=== PATIENT | male | born 1960 | race African-American/Black ===

== ENCOUNTER 2017-12-18 08:39 | Emergency (ER) | payer MEDICAID, OTHER ==
[~2017-12-18] VITALS: Ht 175.3 cm; Wt 88.6 kg
[~2017-12-18 08:39] MED LIST: AMLO-511 PO; HYDR25TA PO; METO50 PO
[2017-12-18 08:45] VITALS: BP 156/108
[2017-12-18] MEDS ORDERED: ACETAMINOPHEN 500 MG TABLET PO ONE (09:00)
== END 2017-12-18 09:53 | disposition home or self-care (01) ==
LOC: EMS 08:40
DX: S92.352A Displaced fracture of fifth metatarsal bone, left foot, initial encounter for closed fracture (principal); I10 Essential (primary) hypertension; E78.00 Pure hypercholesterolemia, unspecified; X50.1XXA Overexertion from prolonged static or awkward postures, initial encounter; Y93.89 Activity, other specified; Y92.89 Other specified places as the place of occurrence of the external cause; Y99.8 Other external cause status
CPT/HCPCS: 29515; 99284

== ENCOUNTER 2018-02-07 20:23 | Emergency (ER) | payer OTHER ==
[~2018-02-07] VITALS: Ht 175.3 cm; Wt 87.3 kg
[2018-02-07] MEDS ORDERED: OMEP20 PO (20:32)
[2018-02-07] MEDS ORDERED: TAMS0.4C32 PO (20:32)
[2018-02-07] MEDS ORDERED: ASPI-556 PO (20:32)
[2018-02-07 21:10] VITALS: BP 124/76
[2018-02-07] MEDS ORDERED: IBUPROFEN 800 MG TABLET PO ONE (21:30)
== END 2018-02-07 22:06 | disposition home or self-care (01) ==
LOC: EMS 20:24
DX: S90.121A Contusion of right lesser toe(s) without damage to nail, initial encounter (principal); I25.10 Atherosclerotic heart disease of native coronary artery without angina pectoris; K21.9 Gastro-esophageal reflux disease without esophagitis; E78.00 Pure hypercholesterolemia, unspecified; I10 Essential (primary) hypertension; W22.8XXA Striking against or struck by other objects, initial encounter; Y93.89 Activity, other specified; Y92.89 Other specified places as the place of occurrence of the external cause; Y99.8 Other external cause status
CPT/HCPCS: 29550; 99284

== ENCOUNTER 2020-02-10 22:17 | Emergency (ER) | payer OTHER ==
[~2020-02-10] VITALS: Ht 175.3 cm; Wt 77.7 kg
[~2020-02-10 22:17] MED LIST changes: +AMLO-257 PO; -AMLO-511 PO; +ASPI-556 PO; +HYDR-1475 PO; -HYDR25TA PO; +OMEP20 PO; +TAMS-13 PO
[2020-02-11] MEDS ORDERED: ACETAMINOPHEN 500 MG TABLET PO ONE (01:45)
[2020-02-11] MEDS ORDERED: KETOROLAC TROMETHAMINE 60 MG/2 ML VIAL IM ONE (01:45)
[2020-02-11] MEDS ORDERED: METHOCARBAMOL 750 MG TABLET PO ONE (01:45)
[2020-02-11 02:48] LABS: APPEARANCE,URINE CLEAR (CLEAR); BILIRUBIN,URINE NEGATIVE (NEGATIVE); GLUCOSE, URINE (UA) NEGATIVE (NEGATIVE); KETONES,URINE NEGATIVE (NEGATIVE); LEUKOCYTE ESTERASE ,URINE NEGATIVE (NEGATIVE); NITRATE,URINE NEGATIVE (NEGATIVE); OCCULT BLOOD,URINE TRACE (NEGATIVE); PH,URINE 6.5 (5.0-8.0); PROTEIN,URINE NEGATIVE (NEGATIVE); UROBILINOGEN,URINE 0.2 mg/dL (<=1.0)
[2020-02-11 03:06] LABS: BACTERIA,URINE Rare /HPF (None Seen); RBC,URINE 0-2 /HPF (0-2); SQUAMOUS EPITHELIAL CELL,UR Few /LPF (None Seen); WBC,URINE 0-2 /HPF (0-5)
[2020-02-11 03:15] VITALS: BP 121/79
== END 2020-02-11 03:43 | disposition home or self-care (01) ==
LOC: EMS 22:17
DX: S39.012A Strain of muscle, fascia and tendon of lower back, initial encounter (principal); I10 Essential (primary) hypertension; E78.00 Pure hypercholesterolemia, unspecified; I25.10 Atherosclerotic heart disease of native coronary artery without angina pectoris; Z79.82 Long term (current) use of aspirin; Z79.899 Other long term (current) drug therapy; X50.9XXA Other and unspecified overexertion or strenuous movements or postures, initial encounter; Y93.89 Activity, other specified; Y92.89 Other specified places as the place of occurrence of the external cause; Y99.8 Other external cause status
CPT/HCPCS: 72110; 81001; 96372; 99283; J1885

== ENCOUNTER 2020-12-21 19:15 | Emergency (ER) | payer OTHER ==
[~2020-12-21] VITALS: Ht 175.3 cm; Wt 81.8 kg
[~2020-12-21 19:15] MED LIST changes: -HYDR-1475 PO; +HYDR25TA2 PO
[2020-12-21 19:18] VITALS: BP 127/75
[2020-12-21] MEDS ORDERED: LIDOCAINE 5% TRANSDERMAL PATCH TD ONE (20:00)
[2020-12-21] MEDS ORDERED: CYCLOBENZAPRINE HCL 10 MG TABLET PO ONE (20:00)
[2020-12-21] MEDS ORDERED: KETOROLAC TROMETHAMINE 60 MG/2 ML VIAL IM ONE (20:00)
== END 2020-12-21 21:27 | disposition home or self-care (01) ==
LOC: EMS 19:16
DX: M54.5 Low back pain (principal); F41.9 Anxiety disorder, unspecified; I25.10 Atherosclerotic heart disease of native coronary artery without angina pectoris; K21.9 Gastro-esophageal reflux disease without esophagitis; E78.00 Pure hypercholesterolemia, unspecified; I10 Essential (primary) hypertension; Z79.82 Long term (current) use of aspirin
CPT/HCPCS: 96372; 99283; J1885

== ENCOUNTER 2022-04-14 18:21 | Emergency (ER) | payer OTHER ==
[~2022-04-14] VITALS: Ht 175.3 cm; Wt 81.0 kg
[2022-04-14] MEDS ORDERED: SODIUM CHLORIDE 0.9% 1,000 ML IV ONE (18:30)
[2022-04-14 18:50] LABS: BASOPHILS % (AUTO) 0.2 % (0.0-2.0); EOSINOPHILS % (AUTO) 2.3 % (1.0-6.0); HEMATOCRIT 38.8 % (41-53); HEMOGLOBIN 12.7 g/dL (13.5-17.5); LYMPHOCYTES # (AUTO) 1.2 K/uL (1.0-4.8); LYMPHOCYTES % (AUTO) 29.2 % (22.0-44.0); MEAN CORPUSCULAR HEMOGLOBIN 28.3 pg (26.0-34.0); MEAN CORPUSCULAR HGB CONC 32.7 G/dL (31.0-37.0); MEAN CORPUSCULAR VOLUME 86 fL (80-100); MONOCYTES # (AUTO) 0.4 K/uL (0.1-1.0); MONOCYTES % (AUTO) 10.1 % (2.0-9.0); NEUTROPHILS # (AUTO) 2.3 K/uL (1.8-7.7); NEUTROPHILS % (AUTO) 58.2 % (40.0-70.0); PLATELET COUNT (AUTO) 219 K/uL (150-450); RED BLOOD CELL COUNT(AUTO) 4.49 MIL/uL (4.50-5.90); RED CELL DISTRIBUTION WIDTH 13.8 % (11.5-14.5)
[2022-04-14 18:56] LABS: CALCIUM, TOTAL 8.6 mg/dL (8.8-10.5); CREATININE 1.57 mg/dL (0.60-1.30); POTASSIUM 3.7 mmol/L (3.5-5.1)
[2022-04-14 19:02] LABS: ALBUMIN 3.5 g/dL (3.4-5.0); BILIRUBIN,TOTAL 0.2 mg/dL (0.1-1.0); TOTAL PROTEIN, SERUM 7.3 g/dL (6.4-8.2)
[2022-04-14 19:12] LABS: COVID AG,FIA SOURCE NASAL SWAB
[2022-04-14 19:31] LABS: INFLUENZA TYPE A NEGATIVE FOR TYPE A (NEGATIVE); INFLUENZA TYPE B NEGATIVE FOR TYPE B (NEGATIVE)
[2022-04-14 20:36] VITALS: BP 131/84
== END 2022-04-14 20:58 | disposition home or self-care (01) ==
LOC: EMS 18:22
DX: R19.7 Diarrhea, unspecified (principal); F41.9 Anxiety disorder, unspecified; K21.9 Gastro-esophageal reflux disease without esophagitis; E78.00 Pure hypercholesterolemia, unspecified; I10 Essential (primary) hypertension; N41.0 Acute prostatitis; Z20.822 Contact with and (suspected) exposure to COVID-19
CPT/HCPCS: 99283; 96360; 87426; 80053; 83690; 85025; 87804; 36415; J7030

== ENCOUNTER 2023-09-04 14:06 | Emergency (ER) | payer OTHER ==
[~2023-09-04] VITALS: Ht 175.3 cm; Wt 83.6 kg
[~2023-09-04 14:06] MED LIST changes: -HYDR25TA2 PO; -TAMS-13 PO; +TAMS0.4C94 PO
[2023-09-04] MEDS ORDERED: ACET-2247 PO (14:14)
[2023-09-04] MEDS ORDERED: BISM-157 PO (14:14)
[2023-09-04 14:40] LABS: BASOPHILS % (AUTO) 0.3 % (0.0-2.0); EOSINOPHILS % (AUTO) 0 % (1.0-6.0); HEMATOCRIT 47.7 % (41-53); HEMOGLOBIN 15.4 g/dL (13.5-17.5); LYMPHOCYTES # (AUTO) 0.2 K/uL (1.0-4.8); LYMPHOCYTES % (AUTO) 2.2 % (22.0-44.0); MEAN CORPUSCULAR HEMOGLOBIN 28.4 pg (26.0-34.0); MEAN CORPUSCULAR HGB CONC 32.3 G/dL (31.0-37.0); MEAN CORPUSCULAR VOLUME 88 fL (80-100); MONOCYTES # (AUTO) 0.2 K/uL (0.1-1.0); MONOCYTES % (AUTO) 2.2 % (2.0-9.0); NEUTROPHILS # (AUTO) 10.7 K/uL (1.8-7.7); PLATELET COUNT (AUTO) 183 K/uL (150-450); RED BLOOD CELL COUNT(AUTO) 5.42 MIL/uL (4.50-5.90); RED CELL DISTRIBUTION WIDTH 14.2 % (11.5-14.5); WHITE BLOOD COUNT (AUTO) 11.2 K/uL (4.5-11.0)
[2023-09-04 14:41] LABS: NEUTROPHILS % (AUTO) 95.3 % (40.0-70.0)
[2023-09-04 14:49] LABS: CALCIUM, TOTAL 9.1 mg/dL (8.8-10.5); CREATININE 1.59 mg/dL (0.60-1.30)
[2023-09-04 14:56] LABS: TROPONIN I-HIGH SENSITIVITY 6 ng/L (<76)
[2023-09-04 15:11] LABS: PROTHROMBIN TIME 10.9 SEC (9.4-11.6)
[2023-09-04 15:13] LABS: ALBUMIN 3.8 g/dL (3.4-5.0); BILIRUBIN,TOTAL 0.6 mg/dL (0.1-1.0); TOTAL PROTEIN, SERUM 7.2 g/dL (6.4-8.2)
[2023-09-04] MEDS: NITROGLYCERIN 0.4 MG SUBLINGUAL TABLET #25 SL ONE (17:37)
[2023-09-04] MEDS: ASPIRIN 81 MG CHEWABLE TABLET PO ONE (17:37)
[2023-09-04] MEDS ORDERED: IOHEXOL 350 MG/ML 100 ML VIAL ONE (18:27)
[2023-09-04] MEDS ORDERED: SODIUM CHLORIDE 0.9% 100 ML ONE (18:27)
[2023-09-04] MEDS: MORPHINE SULFATE 4 MG/ML SYRINGE IVP ONE ×2 (18:29→20:10)
[2023-09-04] MEDS: ONDANSETRON HCL 4 MG/2 ML VIAL IVP ONE ×2 (18:29→22:37)
[2023-09-04 18:32] LABS: COVID AG,FIA SOURCE NASAL SWAB
[2023-09-04 18:34] LABS: APPEARANCE,URINE CLEAR (CLEAR); BILIRUBIN,URINE NEGATIVE (NEGATIVE); COLOR,URINE LIGHT YELLOW (YELLOW); GLUCOSE, URINE (UA) NEGATIVE (NEGATIVE); LEUKOCYTE ESTERASE ,URINE NEGATIVE (NEGATIVE); NITRATE,URINE NEGATIVE (NEGATIVE); OCCULT BLOOD,URINE LARGE (NEGATIVE); PROTEIN,URINE 100-200,SEE CONFIRM mg/dL (NEGATIVE); SPECIFIC GRAVITIY, URINE 1.015 (1.003-1.030); UROBILINOGEN,URINE <=1.0 mg/dL (<=1.0)
[2023-09-04 18:45] LABS: SULFOSALICYLIC ACID,URINE 4+ (Negative)
[2023-09-04] MEDS: NiCARDipine HCL 25 MG in SODIUM CHLORIDE 0.9% 240 ML IV PRN (18:45)
[2023-09-04 18:48] LABS: BACTERIA,URINE None Seen /HPF (None Seen); WBC,URINE 0-2 /HPF (0-5)
[2023-09-04 18:50] LABS: SARS-COV2 (COVID) ANTIGEN,FIA Negative (Negative)
[2023-09-04] MEDS: LABETALOL HCL 200 MG in DEXTROSE 5%-WATER 160 ML IV PRN (19:31)
[2023-09-04 21:49] VITALS: TEMP 98.4
[2023-09-04] MEDS ORDERED: METOCLOPRAMIDE HCL 5 MG/ML 2 ML VIAL ONE (23:01)
[2023-09-04 23:04] VITALS: BP 123/82; PULSE 78; RESP 18
[2023-09-04] MEDS: METOCLOPRAMIDE HCL 5 MG/ML 2 ML VIAL IVP ONE (23:05)
== END 2023-09-04 23:07 | disposition short-term general hospital (02) ==
LOC: EMS 14:09
DX: I71.00 Dissection of unspecified site of aorta (principal); R07.89 Other chest pain; F41.9 Anxiety disorder, unspecified; E78.00 Pure hypercholesterolemia, unspecified; I25.10 Atherosclerotic heart disease of native coronary artery without angina pectoris; I11.9 Hypertensive heart disease without heart failure; Z20.822 Contact with and (suspected) exposure to COVID-19
CPT/HCPCS: 99291; 74174; 96365; 74175; 96375; 71045; 96367; 87426; 80053; 81001; 82550; 83690; 83880; 84484; 85025; 85610; 85730; 36415; 93005; 96376; J3490 ×2; J2765; J2270; J2405; Q9967; J7060; J7050 ×2; 81002

== ENCOUNTER 2023-09-30 08:28 | Emergency (ER) | payer OTHER ==
[~2023-09-30] VITALS: Ht 175.3 cm; Wt 75.5 kg
[~2023-09-30 08:28] MED LIST changes: +ACET-2247 PO; +BISM-157 PO
[2023-09-30 08:35] VITALS: BP 108/68; PULSE 71; RESP 18; TEMP 98.2
[2023-09-30] MEDS ORDERED: PANT40TA54 PO (08:39)
[2023-09-30] MEDS ORDERED: METO100T14 PO (08:39)
[2023-09-30] MEDS ORDERED: AMLO10TA55 PO (08:39)
[2023-09-30] MEDS ORDERED: ACET500C4 PO (08:42)
[2023-09-30] MEDS ORDERED: SULF-261 PO (12:48)
== END 2023-09-30 13:30 | disposition home or self-care (01) ==
LOC: EMS 08:28
DX: L03.032 Cellulitis of left toe (principal); E78.00 Pure hypercholesterolemia, unspecified; I10 Essential (primary) hypertension; F41.9 Anxiety disorder, unspecified; I25.10 Atherosclerotic heart disease of native coronary artery without angina pectoris; K21.9 Gastro-esophageal reflux disease without esophagitis
CPT/HCPCS: 99283

== ENCOUNTER 2024-11-20 22:56 | Emergency (ER) | payer OTHER ==
[~2024-11-20] VITALS: Ht 175.3 cm; Wt 84.1 kg
[~2024-11-20 22:56] MED LIST changes: -ACET-2247 PO; -AMLO-257 PO; +AMLO10TA55 PO; +ATOR20TA65 PO; -BISM-157 PO; -OMEP20 PO; +OMEP20CA12 PO
[2024-11-20 23:16] VITALS: TEMP 98.2
[2024-11-20 23:45] LABS: BASOPHILS % (AUTO) 0.7 % (0.0-2.0); EOSINOPHILS % (AUTO) 3.9 % (1.0-6.0); HEMATOCRIT 44.2 % (41-53); HEMOGLOBIN 14.4 g/dL (13.5-17.5); LYMPHOCYTES # (AUTO) 1.3 K/uL (1.0-4.8); MEAN CORPUSCULAR HEMOGLOBIN 28.3 pg (26.0-34.0); MEAN CORPUSCULAR HGB CONC 32.5 G/dL (31.0-37.0); MEAN CORPUSCULAR VOLUME 87 fL (80-100); MONOCYTES # (AUTO) 0.5 K/uL (0.1-1.0); MONOCYTES % (AUTO) 10.1 % (2.0-9.0); NEUTROPHILS # (AUTO) 2.9 K/uL (1.8-7.7); NEUTROPHILS % (AUTO) 59.3 % (40.0-70.0); PLATELET COUNT (AUTO) 247 K/uL (150-450); RED BLOOD CELL COUNT(AUTO) 5.08 MIL/uL (4.50-5.90); RED CELL DISTRIBUTION WIDTH 14.5 % (11.5-14.5); WHITE BLOOD COUNT (AUTO) 4.9 K/uL (4.5-11.0)
[2024-11-20 23:53] LABS: CREATININE 1.87 mg/dL (0.60-1.30); POTASSIUM 3.9 mmol/L (3.5-5.1)
[2024-11-20 23:59] LABS: ALBUMIN 3.6 g/dL (3.4-5.0); BILIRUBIN,DIRECT 0.1 mg/dL (0.00-0.20); BILIRUBIN,TOTAL 0.3 mg/dL (0.1-1.0)
[2024-11-21 03:37] LABS: TROPONIN I-HIGH SENSITIVITY 7 ng/L (<76)
[2024-11-21 03:39] VITALS: BP 151/93; PULSE 63; RESP 18; O2SAT 97
[2024-11-21] MEDS ORDERED: ACET-2080 PO (04:21)
[2024-11-21] MEDS ORDERED: CLON0.1T2 PO (04:21)
[2024-11-21] MEDS: ACETAMINOPHEN/CODEINE 300-30 MG TABLET PO ONE (04:48)
== END 2024-11-21 04:50 | disposition home or self-care (01) ==
LOC: EMS 22:56
DX: I10 Essential (primary) hypertension (principal); R51.9 Headache, unspecified; E78.00 Pure hypercholesterolemia, unspecified; Z79.82 Long term (current) use of aspirin; Z79.899 Other long term (current) drug therapy
CPT/HCPCS: 71045; 80048; 80076; 84484; 85025; 93005; 99285; 36415-L1; 36415-TC